=== PATIENT | female | born 1985 | race American Indian/Alaskan Native ===

== ENCOUNTER 2016-12-01 16:58 | Outpatient (CLI) | payer MEDICAID ==
[2016-12-01] MEDS ORDERED: XYLOCAINE 1% MPF 5 mL INFILTRATI ONE (18:24)
[2016-12-01] MEDS ORDERED: LACTATED RINGERS 500 ML IV ONE (18:45)
[2016-12-01 19:12] LABS: Hemoglobin 11.8 gm/dl (10.1-14.3); Mean Corpuscular HGB Conc 33 % (30-34); Mean Corpuscular Hemoglobin 30 pg (28-32); Mean Corpuscular Volume 90 fl (79-97); Platelet Count 204 K/mm3 (140-440); Red Cell Distribution Width 14.9 % (13.2-15.2); White Blood Count 6.1 K/mm3 (4.5-11.0)
[2016-12-01 19:25] LABS: Bacteria,Urine 1+ /HPF (Negative); Mucus,Urine FEW /HPF
[2016-12-01 19:30] VITALS: BP 103/61
[2016-12-01 19:30] LABS: Bilirubin,Urine NEG (Negative); Blood,Urine NEG (Negative); Ketones,Urine NEG (Negative); Leukocyte Esterase,Urine NEG (Negative); Nitrite,Urine NEG (Negative); Protein,Urine <15 mg/dL mg/dL (Negative); Urobilinogen,Urine < 2.0 mg/dL (<2.0)
[2016-12-01] MEDS ORDERED: ROCEPHIN IM SCH (20:00)
[2016-12-01 20:01] LABS: Alanine Aminotransferase 13 units/L (7-56); Lactate Dehydrogenase 199 units/L (91-180); Uric Acid 3.9 mg/dL (3.5-7.6)
== END 2016-12-01 20:55 | disposition home or self-care (01) ==
LOC: TRG 16:58 → LD 18:25 → TRG 20:55
PROVIDERS: ATTEND Obstetrics & Gynecology
DX: O47.03 False labor before 37 completed weeks of gestation, third trimester (principal); Z3A.35 35 weeks gestation of pregnancy
CPT/HCPCS: 36415; 81001; 82565; 83615; 84450; 84460; 84550; 85027; J0696; 59025

== ENCOUNTER 2016-12-12 19:43 | Outpatient (CLI) | payer MEDICAID ==
[2016-12-12] MEDS ORDERED: LACTATED RINGERS 1,000 ML ONE (20:29)
== END 2016-12-12 21:49 | disposition home or self-care (01) ==
LOC: TRG 19:43 → LD 20:20 → TRG 21:49
PROVIDERS: ATTEND Obstetrics & Gynecology
DX: O47.1 False labor at or after 37 completed weeks of gestation (principal); Z3A.37 37 weeks gestation of pregnancy
CPT/HCPCS: 59025; J7120

== ENCOUNTER 2016-12-25 19:04 | Outpatient (CLI) | payer MEDICAID ==
[2016-12-25 19:25] VITALS: BP 103/73
== END 2016-12-25 20:24 | disposition home or self-care (01) ==
LOC: TRG 19:04
PROVIDERS: ATTEND Obstetrics & Gynecology
DX: O36.8130 Decreased fetal movements, third trimester, not applicable or unspecified (principal); Z3A.39 39 weeks gestation of pregnancy

== ENCOUNTER 2020-05-07 17:45 | Emergency (ER) | payer MEDICAID ==
[2020-05-07 18:00] VITALS: BP 127/79
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
[2020-05-07] MEDS ORDERED: IBUPROFEN 600 MG TAB PO ONE (19:52)
[2020-05-07] MEDS ORDERED: HYDROcodone/ACETAMINOPHEN 5-325 MG TAB PO ONE (19:52)
[2020-05-07] MEDS ORDERED: ONDANSETRON 4 MG ODT TAB PO ONE (19:59)
[2020-05-07] MEDS ORDERED: ONDANSETRON 4 MG ODT TAB ONE (20:01)
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
== END 2020-05-07 22:12 | disposition home or self-care (01) ==
LOC: ED 17:45
DX: S00.83XA Contusion of other part of head, initial encounter (principal); S10.83XA Contusion of other specified part of neck, initial encounter; S00.03XA Contusion of scalp, initial encounter; Y04.8XXA Assault by other bodily force, initial encounter; Y93.89 Activity, other specified; Y92.89 Other specified places as the place of occurrence of the external cause; Y99.8 Other external cause status
CPT/HCPCS: 70450; 70486; Q0162